=== PATIENT | female | born 1995 | race Caucasian/White ===

== ENCOUNTER 2016-10-07 23:07 | Emergency (ER) | payer OTHER ==
[~2016-10-07] VITALS: Ht 160 cm; Wt 52.2 kg
[~2016-10-07 23:07] MED LIST: CLOTRIMAZOLE15 GM TOP; DOXYCYCLINE HY100 M2 PO; MOTRIN 600 MG600 MG PO; ZOFRAN4 M1 SL
[2016-10-08 01:35] LABS: ABSOLUTE BASOPHIL COUNT 0.1 /CUMM (0.0-0.2); ABSOLUTE EOSINOPHIL COUNT 0 /CUMM (0.0-0.7); ABSOLUTE GRANULOCYTE CT 11.5 /CUMM (1.4-6.5); ABSOLUTE LYMPH COUNT 2.1 /CUMM (1.2-3.4); ABSOLUTE MONOCYTE COUNT 0.9 /CUMM (0.10-0.60); BASOPHIL % 0.7 % (0.0-2.0); EOSINOPHIL % 0.1 % (0-5); GRANULOCYTE % 78.9 % (42.2-75.2); HEMATOCRIT 41.6 % (37-47); MEAN CORPUSCULAR HGB 28.2 PG (27.0-31.0); MEAN CORPUSCULAR HGB CONC 33.9 G/DL (33.0-37.0); MEAN CORPUSCULAR VOLUME 83.4 FL (81.0-99.0); MEAN PLATELET VOLUME 9.8 FL (7.4-10.4); PLATELET COUNT 242 /CUMM (130-400); RBC DISTRIBUTION WIDTH 13.3 % (11.5-14.5); RED BLOOD CELL CT 4.99 /CUMM (4.20-5.40); WHITE BLOOD CELL COUNT 14.5 /CUMM (4.8-10.8)
--- NOTE | 2016-10-08 01:47 | ED GI/GU/ABDOMINAL COMPLAINT ---
History of Present Illness General Chief Complaint: Abdominal Pain/Flank Pain Stated Complaint: ABD PAIN,VOMTING Source: patient, family Exam Limitations: no limitations Vital Signs & Intake/Output Vital Signs & Intake/Output Vital Signs Date Time Temp Pulse Resp B/P B/P Pulse O2 O2 Flow FiO2 Mean Ox Delivery Rate 10/08 0744 100.2 65 18 103/54 97 Room Air 10/08 0511 99.8 10/08 0301 98.9 87 18 113/61 97 Room Air 10/08 0219 Room Air 10/07 2326 100.4 90 18 104/54 96 Room Air ED Intake and Output 10/08 0000 10/07 1200 Intake Total Output Total Balance Patient 115 lb Weight Weight Reported by Patient Measurement Method Allergies Coded Allergies: NO KNOWN ALLERGIES (11/13/12) Triage Note: ABD CRAMPS ALL DAY ADVIL WITH NO RELIEF BACK PAIN,SHARP PAINS IN CHEST,VOMITED X1 Triage Nurses Notes Reviewed? yes ? N Is pt currently ? No HPI: Patient presents for evaluation of a cramping abdominal pain that began gradually yesterday. Patient states she then began having a sharp chest pain. She also felt like she was going to vomit. In addition to the abdominal pain she is also experiencing a bilateral low back pain. She denies diarrhea, dysuria, rashes, dyspnea, ill contacts or recent travel. Nothing seems to make her feel better. (MAVERICK JACQUES,VIKKI Lester) Past History Travel History Traveled to [place] past 21 day No Medical History Any Pertinent Medical History? 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 No (VIKKI TEMPLE MD) Review of Systems Review of Systems Constitutional: Reports: no symptoms. EENTM: Reports: no symptoms. Respiratory: Reports: no symptoms. Cardiovascular: Reports: no symptoms. GI: Reports: see HPI. Genitourinary: Reports: no symptoms. Musculoskeletal: Reports: no symptoms. Skin: Reports: no symptoms. Neurological/Psychological: Reports: no symptoms. Hematologic/Endocrine: Reports: no symptoms. Immunologic/Allergic: Reports: no symptoms. All Other Systems: Reviewed and Negative (MAVERICK JACQUES,VIKKI Lester) Physical Exam Physical Exam Gastrointestinal: SEE BELOW Comments: Gen.: Well-nourished, well-developed, no acute respiratory distress. Head: Normocephalic, atraumatic. Eyes: Normal inspection bilaterally Ears: Normal inspection bilaterally Nose: Normal inspection Throat/mouth : Moist mucosa Neck: Supple, full range of motion, no goiter Heart: Regular rate and rhythm, no murmurs rubs or gallops Lungs: Clear to auscultation bilaterally with normal air entry Chest: Nontender Back: Normal range of motion, nontender to palpation, mild right CVA T to percussion Abdomen: Soft, diffusely tender without rebound or guarding, nondistended, normal bowel sounds, no palpable masses Extremities: Normal range of motion grossly, equal radial pulses, no cyanosis clubbing or edema, calves nontender Neurologic: Cranial nerves grossly intact, speech is clear Skin: warm and dry Psychiatric: Calm, cooperative, no apparent delusions or hallucinations Core Measures ACS in differential dx? No Severe Sepsis Present: No Septic Shock Present: No (MAVERICK JACQUES,VIKKI Lester) Progress Differential Diagnosis: GASTROENTERITIS, SIDE EFFECT OF MARIJUANA, GASTRITIS Plan of Care: Orders Procedure Date/time Status Add-on Test (ER Only) 10/08 0558 Active CBC WITHOUT DIFFERENTIAL 10/08 0558 Complete BASIC METABOLIC PANEL 10/08 0558 Complete URINALYSIS 10/08 0425 Complete URINE DRUGS OF ABUSE 10/08 0408 Complete Add-on Test (ER Only) 10/08 0159 Active CREATINE PHOSPHOKINASE 10/08 0125 Complete COMPREHENSIVE METABOLIC PANEL 10/08 0122 Complete CBC WITHOUT DIFFERENTIAL 10/08 0122 Complete URINE 10/08 0026 Complete URINALYSIS 10/08 0026 Complete Current Medications Sig/Panchito Start time Last Medication Dose Stop Time Status Admin Sodium Chloride 1,000 ML BOLUS ONE 10/08 0800 AC 10/08 (Normal Saline 0.9%) 10/08 0859 0758 Sodium Chloride 1,000 ML BOLUS ONE 10/08 0215 CAN (Normal Saline 0.9%) 10/08 0314 Laboratory Tests 10/08/16 0617: Anion Gap 8, Estimated GFR > 60, BUN/Creatinine Ratio 8.3, Glucose 81, Calcium 8.5, CBC w Diff NO MAN DIFF REQ, RBC 4.87, MCV 84.5, MCH 28.3, RDW 13.5, MPV 9.8 , Gran % 76.4 H, Lymphocytes % 16.3 L, Monocytes % 6.8, Eosinophils % 0.1, Basophils % 0.4, Absolute Granulocytes 6.9 H, Absolute Lymphocytes 1.5, Absolute Monocytes 0.6, Absolute Eosinophils 0, Absolute Basophils 0, PUBS MCHC 33.4 10/08/16 0408: Urine Opiates Screen < 100.00, Methadone Screen < 40, Barbiturate Screen < 60, Ur Phencyclidine Scrn < 6.00, Amphetamines Screen < 100, U Benzodiazepines Scrn < 85, Urine Cocaine Screen < 50, Urine Cannabis Screen > 80.00 H, Urinalysis LIGHT H, Urine Color STRAW, Urine Clarity HAZY H, Urine pH 6.5, Ur Specific Deport <= 1.005, Urine Protein NEG, Urine Ketones 40 H, Urine Nitrite POS H, Urine Bilirubin NEG, Urine Urobilinogen 0.2, Ur Leukocyte Esterase SMALL H, Ur Microscopic SEDIMENT EXAMINED, Urine RBC 3-5, Urine WBC 10-15 H, Ur Epithelial Cells FEW, Urine Bacteria MOD H, Urine Hemoglobin TRACE-INTACT, Urine Glucose 500 H 10/08/16 0311: Urine Color Cancelled, Urine Clarity Cancelled, Urine pH Cancelled, Ur Specific Deport Cancelled, Urine Protein Cancelled, Urine Ketones Cancelled, Urine Nitrite Cancelled, Urine Bilirubin Cancelled, Urine Urobilinogen Cancelled, Ur Leukocyte Esterase Cancelled, Ur Microscopic Cancelled, Urine Hemoglobin Cancelled, Urine Glucose Cancelled 10/08/16 0125: Anion Gap 15, Estimated GFR > 60, BUN/Creatinine Ratio 11.4, Glucose 86, Calcium 9.7, Total Bilirubin 1.0, AST 18, ALT 23, Alkaline Phosphatase 82, Creatine Kinase 145 H, Total Protein 7.5, Albumin 4.7, Globulin 2.8, Albumin/Globulin Ratio 1.7, CBC w Diff NO MAN DIFF REQ, RBC 4.99, MCV 83.4, MCH 28.2, RDW 13.3, MPV 9.8, Gran % 78.9 H, Lymphocytes % 14.1 L, Monocytes % 6.2, Eosinophils % 0.1, Basophils % 0.7, Absolute Granulocytes 11.5 H, Absolute Lymphocytes 2.1, Absolute Monocytes 0.9 H, Absolute Eosinophils 0, Absolute Basophils 0.1, PUBS MCHC 33.9 10/08/16 0030: Urine Color YEL, Urine Clarity CLDY H, Urine pH 6.5, Ur Specific Deport 1.020, Urine Protein 100 H, Urine Ketones >=80, Urine Nitrite POS H, Urine Bilirubin NEG, Urine Urobilinogen 1.0, Ur Leukocyte Esterase SMALL H, Ur Microscopic SEDIMENT EXAMINED, Urine RBC 3-5, Urine WBC 15-25 H, Ur Epithelial Cells PACKD H, Urine Bacteria MANY H, Urine Mucus FEW, Urine Hemoglobin MOD H, Urine Glucose NEG, Urine Test NEGATIVE Initial ED EKG: none Comments: 10/08/2016 5:08:31 AM I updated Barrington on her test results after initial testing. I did discuss with her the findings of the urinalysis. They agreed with additional fluids and a repeat urine. Repeat urinalysis shows improvement in the level of ketones and her urine is now quite dilute. Unfortunately she vomited again so additional Zofran has been ordered. 10/08/2016 5:58:57 AM Barrington continues to vomit despite a second dose of Zofran. I have ordered Phenergan for symptom control and expanded evaluation to include a CAT scan and repeat CBCs and BMP. I have also added a drug tox screen. 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 (MAVERICK JACQUES,VIKKI Lester) Diagnostic Imaging: Viewed by Me: CT Scan. Discussed w/RAD: CT Scan. Radiology Impression: PATIENT: MARTIN BRITT PRESENT AGE: 21 PATIENT ACCOUNT NO: [id number] : 95 LOCATION: [facility] ORDERING PHYSICIAN: VIKKI TEMPLE MD SERVICE DATE: 10/08/16 EXAM TYPE: CAT - CT ABD & PELVIS W IV CONTRAST EXAMINATION: CT ABDOMEN AND PELVIS WITH CONTRAST CLINICAL INFORMATION: Intractable vomiting COMPARISON: None TECHNIQUE: Multidetector volumetric imaging was performed of the abdomen and pelvis before and after the IV administration of 95 mL of Optiray 320 intravenous contrast. Sagittal and coronal reformatted images were obtained on the technologist's workstation. DLP: 255.37 mGy-cm FINDINGS: LUNG BASES: The visualized lung bases are unremarkable. LIVER, GALLBLADDER, AND BILIARY TREE: The liver is mildly enlarged. Evaluation of the liver is slightly limited due to the timing of the contrast bolus; the hepatic veins are not yet opacified. There is patchy attenuation of the right lobe of the liver with a subtle 1 cm hypoattenuating region in the inferior right lobe (image 34, series 2). No well-defined mass. No intrahepatic biliary ductal dilatation. Mild periportal edema is seen. No evidence of portal vein thrombosis. The gallbladder demonstrates mild gallbladder wall edema without visualized calculus. There is a small volume of free fluid adjacent to the gallbladder and in the hepatorenal fossa. PANCREAS: Unremarkable. SPLEEN: Unremarkable. ADRENAL GLANDS: Unremarkable. KIDNEYS AND URETERS: Both kidneys are normal in size without calculus or hydronephrosis. A slightly ill-defined rounded hypodensity seen in the anterior cortex of the right lower pole measuring 8 mm in maximum size. This does not have the characteristics of a simple renal cyst. No additional findings. BLADDER: Unremarkable. GASTROINTESTINAL TRACT: No evidence of bowel obstruction. The study is limited by the lack of oral contrast. No obvious gastric wall thickening. No significant small bowel dilatation. The cecum and appendix are located in the right mid to lower abdomen. No evidence of appendicitis. No evidence of pneumoperitoneum. ABDOMINAL WALL: No significant hernia is appreciated. LYMPH NODES: Normal. VASCULAR: Abdominal aorta is normal in appearance. There is normal orientation of the superior mesenteric artery and superior mesenteric vein. 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 A small amount of free fluid is seen in the pelvis. No evidence of adnexal mass. OSSEOUS STRUCTURES: Unremarkable. IMPRESSION: 1. Mild hepatomegaly. Asymmetric enhancement of the liver with patchy attenuation in the right lobe and a subtle hypoattenuating region inferiorly. These findings may be exaggerated by the phase of contrast enhancement. There is associated periportal edema and edema in the gallbladder wall with a small amount of fluid in the hepatorenal fossa. Correlate with liver enzymes to assess for hepatitis or other inflammatory process. Recommend abdominal ultrasound with complete liver Doppler. 2. No evidence of splenomegaly or portal hypertension. 3. Subtle hypoattenuating region in the lower pole of the right kidney may reflect a complex cyst. A subtle focus of pyelonephritis is not excluded. Recommend correlation with renal sonography. 4. The cecum and appendix are located in the right mid to lower abdomen. No evidence of appendicitis. No evidence of bowel obstruction. DICTATED BY: DMITRY JACKSON MD DATE/TIME DICTATED:10/08/16718 QUALITY CONTROL LAB TECH:DAVID DATE/TIME TRANSCRIBED:10/08/16718 CONFIDENTIAL, DO NOT COPY WITHOUT APPROPRIATE AUTHORIZATION. <Electronically signed in Other Vendor System> SIGNED BY: DMITRY JACKSON MD 10/08/16 0375 Comments: Patient and her mother have been updated on labs and CAT scan results. Patient is feeling slightly better after the Reglan and Levsin. We'll continue to monitor. As long as she is feeling better she'll be stable for discharge. (ALEXYS JACQUES,LEONEL Castellano) Departure Departure Condition: Stable Referrals: AYLA JACQUES,SALUD Bergman (PCP/Family) Departure Forms: Customer Survey General Discharge Information (MAVERICK JACQUES,VIKIK Lester) Departure Disposition: HOME OR SELF CARE Clinical Impression Primary Impression: Lower abdominal pain, unspecified Secondary Impressions: Vomiting Qualifiers: Vomiting type: unspecified Vomiting Intractability: non-intractable Nausea presence: with nausea Qualified Code: R11.2 - Nausea with vomiting, unspecified Additional Instructions: Take Reglan as needed for nausea. Take Levsin as needed for abdominal cramps. Return for any concerns. Prescriptions: Current Visit Scripts Metoclopramide HCl (Reglan) 1 TAB PO 4 TIMES/DAY PRN NAUSEA #20 TAB 30 minutes before meals and bedtime Hyoscyamine (Levsin) 1 TAB PO Q4 PRN ABDOMINAL PAIN #20 TAB (ALEXYS JACQUES,LEONEL Castellano)
[2016-10-08 06:28] LABS: ABSOLUTE BASOPHIL COUNT 0 /CUMM (0.0-0.2); ABSOLUTE EOSINOPHIL COUNT 0 /CUMM (0.0-0.7); ABSOLUTE GRANULOCYTE CT 6.9 /CUMM (1.4-6.5); ABSOLUTE LYMPH COUNT 1.5 /CUMM (1.2-3.4); ABSOLUTE MONOCYTE COUNT 0.6 /CUMM (0.10-0.60); BASOPHIL % 0.4 % (0.0-2.0); EOSINOPHIL % 0.1 % (0-5); GRANULOCYTE % 76.4 % (42.2-75.2); HEMATOCRIT 41.2 % (37-47); MEAN CORPUSCULAR HGB 28.3 PG (27.0-31.0); MEAN CORPUSCULAR HGB CONC 33.4 G/DL (33.0-37.0); MEAN CORPUSCULAR VOLUME 84.5 FL (81.0-99.0); MEAN PLATELET VOLUME 9.8 FL (7.4-10.4); PLATELET COUNT 178 /CUMM (130-400); RBC DISTRIBUTION WIDTH 13.5 % (11.5-14.5); RED BLOOD CELL CT 4.87 /CUMM (4.20-5.40); WHITE BLOOD CELL COUNT 9.1 /CUMM (4.8-10.8)
--- NOTE | 2016-10-08 07:40 | CT SCAN REPORT ---
EXAMINATION: CT ABDOMEN AND PELVIS WITH CONTRAST CLINICAL INFORMATION: Intractable vomiting COMPARISON: None TECHNIQUE: Multidetector volumetric imaging was performed of the abdomen and pelvis before and after the IV administration of 95 mL of Optiray 320 intravenous contrast. Sagittal and coronal reformatted images were obtained on the technologist's workstation. DLP: 255.37 mGy-cm FINDINGS: LUNG BASES: The visualized lung bases are unremarkable. LIVER, GALLBLADDER, AND BILIARY TREE: The liver is mildly enlarged. Evaluation of the liver is slightly limited due to the timing of the contrast bolus; the hepatic veins are not yet opacified. There is patchy attenuation of the right lobe of the liver with a subtle 1 cm hypoattenuating region in the inferior right lobe (image 34, series 2). No well-defined mass. No intrahepatic biliary ductal dilatation. Mild periportal edema is seen. No evidence of portal vein thrombosis. The gallbladder demonstrates mild gallbladder wall edema without visualized calculus. There is a small volume of free fluid adjacent to the gallbladder and in the hepatorenal fossa. PANCREAS: Unremarkable. SPLEEN: Unremarkable. ADRENAL GLANDS: Unremarkable. KIDNEYS AND URETERS: Both kidneys are normal in size without calculus or hydronephrosis. A slightly ill-defined rounded hypodensity seen in the anterior cortex of the right lower pole measuring 8 mm in maximum size. This does not have the characteristics of a simple renal cyst. No additional findings. BLADDER: Unremarkable. GASTROINTESTINAL TRACT: No evidence of bowel obstruction. The study is limited by the lack of oral contrast. No obvious gastric wall thickening. No significant small bowel dilatation. The cecum and appendix are located in the right mid to lower abdomen. No evidence of appendicitis. No evidence of pneumoperitoneum. ABDOMINAL WALL: No significant hernia is appreciated. LYMPH NODES: Normal. VASCULAR: Abdominal aorta is normal in appearance. There is normal orientation of the superior mesenteric artery and superior mesenteric vein. 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 A small amount of free fluid is seen in the pelvis. No evidence of adnexal mass. OSSEOUS STRUCTURES: Unremarkable. IMPRESSION: 1. Mild hepatomegaly. Asymmetric enhancement of the liver with patchy attenuation in the right lobe and a subtle hypoattenuating region inferiorly. These findings may be exaggerated by the phase of contrast enhancement. There is associated periportal edema and edema in the gallbladder wall with a small amount of fluid in the hepatorenal fossa. Correlate with liver enzymes to assess for hepatitis or other inflammatory process. Recommend abdominal ultrasound with complete liver Doppler. 2. No evidence of splenomegaly or portal hypertension. 3. Subtle hypoattenuating region in the lower pole of the right kidney may reflect a complex cyst. A subtle focus of pyelonephritis is not excluded. Recommend correlation with renal sonography. 4. The cecum and appendix are located in the right mid to lower abdomen. No evidence of appendicitis. No evidence of bowel obstruction.
[2016-10-08] MEDS ORDERED: REGLAN10 M1 PO (08:30)
[2016-10-08] MEDS ORDERED: LEVSIN0.125 M1 PO (08:30)
[2016-10-08 09:21] VITALS: BP 93/50
== END 2016-10-08 09:59 ==
LOC: ERH 23:07
PROVIDERS: Emergency Medicine
DX: R10.9 Unspecified abdominal pain (principal); R07.9 Chest pain, unspecified
CPT/HCPCS: 74177; 80307; 81001; 81025; 96374; J2405; J2550; J2765; J7042

== ENCOUNTER 2016-10-11 21:25 | Emergency (ER) | payer OTHER ==
[~2016-10-11] VITALS: Ht 157.5 cm; Wt 52.2 kg
[~2016-10-11 21:25] MED LIST changes: +LEVSIN0.125 M1 PO; +REGLAN10 M1 PO
--- NOTE | 2016-10-11 23:05 | ED GENERAL ADULT ---
History of Present Illness General Chief Complaint: General Adult Stated Complaint: 102 FEVER, VOMITING, HERE 2DAYS AGO FOR SAME Source: patient Exam Limitations: no limitations Vital Signs & Intake/Output Vital Signs & Intake/Output Vital Signs Date Time Temp Pulse Resp B/P B/P Pulse O2 O2 Flow FiO2 Mean Ox Delivery Rate 10/12 0249 99.7 81 18 112/62 98 Room Air 10/11 2344 80 20 110/56 98 Room Air 10/11 2152 100.4 80 20 111/74 97 Room Air ED Intake and Output 10/12 0000 10/11 1200 Intake Total Output Total Balance Patient 115 lb Weight Weight Reported by Patient Measurement Method Allergies Coded Allergies: NO KNOWN ALLERGIES (11/13/12) Reconcile Medications Ciprofloxacin HCl (Cipro) 500 MG TABLET 1 TAB PO BID urine infection/pyelo Hyoscyamine (Levsin) 0.125 MG TABLET 1 TAB PO Q4 PRN ABDOMINAL PAIN Metoclopramide HCl (Reglan) 10 MG TABLET 1 TAB PO 4 TIMES/DAY PRN NAUSEA 30 minutes before meals and bedtime Ondansetron (Zofran Odt) 4 MG TAB.RAPDIS 1 TAB SL TID PRN NAUSEA Triage Note: PT TO ED C/O CONTINUED +N/V, FEVER, LOW ABD CRAMPING PAIN AND SHARP LOW BACK PAIN. SEEN HERE FOR SAME 2 DAYS AGO. TEMP AT HOME 102. TEMP IN TRIAGE 100.4 TA. WAS GIVEN ADVIL LIQUID GELS AT 1900, VOMITTED 20 MINS LATER. STATES HAS HAD ONLY ONE MENSES IN HER LIFE AND THAT WAS WHEN SHE WAS 19 YRS OLD. Triage Nurses Notes Reviewed? yes Onset: Gradual Duration: day(s): Timing: recent history Injury Environment: home Modifying Factors: Improves With: medication. Associated Symptoms: back pain : No Patient currently breastfeeds: No HPI: 21-year-old female presents with nausea vomiting flank pain for the past 2-3 days. She states that she was seen in the emergency department 2 days ago. She had a benign evaluation was sent home with supportive measures. However, did pass a hours she spiked a fever to 102. She notes worsening flank pain bilaterally and lower abdominal pain. She started vomiting again. She has no chest pain shortness of breath for and she is otherwise well and has no other concerns. Past History Travel History Traveled to [place] past 21 day No Medical History Any Pertinent Medical History? see below for history Neurological: NONE EENT: NONE Cardiovascular: NONE Respiratory: NONE Gastrointestinal: NONE Hepatic: NONE Renal: NONE Musculoskeletal: NONE Psychiatric: NONE Endocrine: NONE Blood Disorders: NONE Cancer(s): NONE [employer]/Reproductive: NONE Surgical History Surgical History: non-contributory Psychosocial History What is your primary language Latvian Tobacco Use: Current Daily Use Daily Tobacco Use Amount/Type: => 5 Cigarettes daily ETOH Use: denies use Illicit Drug Use: marijuana Family History Hx Contributory? No Review of Systems Review of Systems Constitutional: Reports: no symptoms. EENTM: Reports: no symptoms. Respiratory: Reports: no symptoms. Cardiovascular: Reports: no symptoms. GI: Reports: no symptoms. Genitourinary: Reports: no symptoms. Musculoskeletal: Reports: no symptoms. Skin: Reports: no symptoms. Neurological/Psychological: Reports: no symptoms. Hematologic/Endocrine: Reports: no symptoms. Immunologic/Allergic: Reports: no symptoms. All Other Systems: Reviewed and Negative Physical Exam Physical Exam General Appearance: well developed/nourished, mild distress Head: atraumatic, normal appearance Eyes: Bilateral: normal appearance. Ears, Nose, Throat: normal pharynx, normal ENT inspection Neck: normal inspection, supple, full range of motion Respiratory: normal breath sounds, chest non-tender, no respiratory distress, quiet respiration, lungs clear Cardiovascular: regular rate/rhythm, edema Gastrointestinal: normal bowel sounds, soft, right lower quadrant tenderness to palpation. Back: CVA tenderness (R), CVA tenderness (L) Extremities: normal inspection Neurologic/Psych: no motor/sensory deficits, awake, alert, oriented x 3 Skin: intact, normal color, warm/dry Core Measures ACS in differential dx? No CVA/TIA Diagnosis: No Severe Sepsis Present: No Septic Shock Present: No Progress Differential Diagnoses I considered the following diagnoses in my evaluation of the patient: Juan Fracnisco versus appendectomy versus ovarian cyst versus cholecystitis versus other Plan of Care: Orders Procedure Date/time Status Add-on Test (ER Only) 10/12 0122 Active CULTURE,URINE 10/11 2343 Active URINALYSIS 10/11 231 Complete LIPASE 10/11 231 Complete HEPATIC FUNCTION PANEL 10/11 2314 Complete CBC WITHOUT DIFFERENTIAL 10/11 2314 Complete BASIC METABOLIC PANEL 10/11 2314 Complete AMYLASE 10/11 231 Complete Laboratory Tests 10/11/16 2343: Urinalysis MOD H, Urine Color YEL, Urine Clarity CLDY H, Urine pH 7.0, Ur Specific [place] 1.020, Urine Protein 30 H, Urine Ketones >=80, Urine Nitrite POS H, Urine Bilirubin SMALL H, Urine Urobilinogen 1.0, Ur Leukocyte Esterase SMALL H, Ur Microscopic SEDIMENT EXAMINED, Urine RBC 1-3, Urine WBC 15-25 H, Ur Epithelial Cells MOD H, Urine Bacteria PACKD H, Hyaline Casts RARE H, Urine Mucus MANY H, Urine Hemoglobin TRACE-INTACT, Urine Glucose NEG 10/11/16 2323: Anion Gap 16, Estimated GFR > 60, BUN/Creatinine Ratio 11.7, Glucose 89, Calcium 9.6, Total Bilirubin 0.8, Direct Bilirubin 0.3, AST 16, ALT 22, Alkaline Phosphatase 76, Total Protein 7.1, Albumin 4.4, Amylase 66, Lipase 59, CBC w Diff MAN DIFF ORDERED, RBC 4.64, MCV 83.9, MCH 28.0, RDW 13.3, MPV 9.4, Gran % 85.3 H, Lymphocytes % 9.4 L, Monocytes % 5.0, Eosinophils % 0, Basophils % 0.3 , Absolute Granulocytes 9.3 H, Segmented Neutrophils 83 H, Band Neutrophils 2, Absolute Lymphocytes 1.0 L, Lymphocytes 12 L, Monocytes 3, Absolute Monocytes 0.5, Absolute Eosinophils 0, Absolute Basophils 0, Platelet Estimate ADEQUATE, Normochromic RBCs VERIFIED, Poikilocytosis 2+, Ovalocytes 1+, Melbeta Cells 1+, Elliptocytes FEW, PUBS MCHC 33.3, Fld Total RBCs Counted 100 Microbiology 10/113 URINE ROUT: Urine Culture - RECD Diagnostic Imaging: Viewed by Me: CT Scan. Discussed w/RAD: CT Scan. Radiology Impression: ABD/PELVIC CT... FLUID AROUND GALL BLADDER... NORMAL APPY... FULL REPORT BELOW. , abd/pelvic ct.... c/w pyelo.. full report below. Initial ED EKG: none Comments: PATIENT: MARTIN BRITT PRESENT AGE: 21 PATIENT ACCOUNT NO: [id number] : 95 LOCATION: ER ORDERING PHYSICIAN: ARIANNA OROZCO MD SERVICE DATE: 10/11/16 EXAM TYPE: CAT - CT ABD & PELVIS W IV CONTRAST EXAMINATION: CT ABDOMEN AND PELVIS WITH CONTRAST CLINICAL INFORMATION: Abdominal pain. Right lower quadrant pain. Right upper quadrant pain. COMPARISON: CT scan abdomen pelvis TECHNIQUE: Multidetector volumetric imaging was performed of the abdomen and pelvis after the IV administration of 94 mL of Optiray 320 intravenous contrast. Sagittal and coronal reformatted images were obtained on the technologist's workstation. DLP: 247.39 mGy-cm FINDINGS: LUNG BASES: The visualized lung bases are unremarkable. LIVER, GALLBLADDER, AND BILIARY TREE: The liver is normal in size, shape, and attenuation. No focal hepatic lesion or biliary ductal dilatation is present. Normal enhancement of the parenchyma of liver. The patchy area of enhancement seen on the prior CAT scan of 10/08/2016 not present on today's study. Right lobe liver measures 16.7 cm superior inferior. The gallbladder is unremarkable with no evidence of radiopaque gallstones, gallbladder wall thickening, or obvious pericholecystic inflammatory changes. PANCREAS: Unremarkable. SPLEEN: Unremarkable. Spleen measures 10 cm AP. ADRENAL GLANDS: Unremarkable. KIDNEYS AND URETERS: There is a new geographic area of low enhancement involving the anterior midpole cortex of the right kidney. This measures about 2 cm of size. There are also multiple streaky area of low enhancement at the right kidney inferior pole. There is a subtle amount of edema around the right kidney. Findings suggest a focal pyelonephritis. The left kidney is normal. No calculus or hydronephrosis. BLADDER: Unremarkable. GASTROINTESTINAL TRACT: The small and large bowel are unremarkable. The appendix is is normal. ABDOMINAL WALL: No significant hernia is appreciated. LYMPH NODES: Normal. VASCULAR: Unremarkable. PELVIC VISCERA: Bicornuate configuration of the uterus. No adnexal abnormality. Small amount of fluid in the cul-de-sac which is nonspecific. OSSEOUS STRUCTURES: Unremarkable. IMPRESSION: 1. Interval development of patchy enhancement of the cortex of the mid and lower pole of the right kidney consistent with focal pyelonephritis. Correlate with urinalysis. 2. Normal enhancement of liver parenchyma on today's study with no focal lesion. 3. Normal variant of bicornuate uterus. 4. Normal appendix. No acute change of the bowel. DICTATED BY: BHUPINDER DUNN MD DATE/TIME DICTATED:10/12/1635 CLINICAL RESEARCH ANALYST:DAVID DATE/TIME TRANSCRIBED:10/12/1635 CONFIDENTIAL, DO NOT COPY WITHOUT APPROPRIATE AUTHORIZATION. <Electronically signed in Other Vendor System> SIGNED BY: BHUPINDER DUNN MD 10/12/16 0048 PATIENT: MARTIN BRITT PRESENT AGE: 21 PATIENT ACCOUNT NO: [id number] : 95 LOCATION: [facility] ORDERING PHYSICIAN: VIKKI TEMPLE MD SERVICE DATE: 10/08/16 EXAM TYPE: CAT - CT ABD & PELVIS W IV CONTRAST EXAMINATION: CT ABDOMEN AND PELVIS WITH CONTRAST CLINICAL INFORMATION: Intractable vomiting COMPARISON: None TECHNIQUE: Multidetector volumetric imaging was performed of the abdomen and pelvis before and after the IV administration of 95 mL of Optiray 320 intravenous contrast. Sagittal and coronal reformatted images were obtained on the technologist's workstation. DLP: 255.37 mGy-cm FINDINGS: LUNG BASES: The visualized lung bases are unremarkable. LIVER, GALLBLADDER, AND BILIARY TREE: The liver is mildly enlarged. Evaluation of the liver is slightly limited due to the timing of the contrast bolus; the hepatic veins are not yet opacified. There is patchy attenuation of the right lobe of the liver with a subtle 1 cm hypoattenuating region in the inferior right lobe (image 34, series 2). No well-defined mass. No intrahepatic biliary ductal dilatation. Mild periportal edema is seen. No evidence of portal vein thrombosis. The gallbladder demonstrates mild gallbladder wall edema without visualized calculus. There is a small volume of free fluid adjacent to the gallbladder and in the hepatorenal fossa. PANCREAS: Unremarkable. SPLEEN: Unremarkable. ADRENAL GLANDS: Unremarkable. KIDNEYS AND URETERS: Both kidneys are normal in size without calculus or hydronephrosis. A slightly ill-defined rounded hypodensity seen in the anterior cortex of the right lower pole measuring 8 mm in maximum size. This does not have the characteristics of a simple renal cyst. No additional findings. BLADDER: Unremarkable. GASTROINTESTINAL TRACT: No evidence of bowel obstruction. The study is limited by the lack of oral contrast. No obvious gastric wall thickening. No significant small bowel dilatation. The cecum and appendix are located in the right mid to lower abdomen. No evidence of appendicitis. No evidence of pneumoperitoneum. ABDOMINAL WALL: No significant hernia is appreciated. LYMPH NODES: Normal. VASCULAR: Abdominal aorta is normal in appearance. There is normal orientation of the superior mesenteric artery and superior mesenteric vein. 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 A small amount of free fluid is seen in the pelvis. No evidence of adnexal mass. OSSEOUS STRUCTURES: Unremarkable. IMPRESSION: 1. Mild hepatomegaly. Asymmetric enhancement of the liver with patchy attenuation in the right lobe and a subtle hypoattenuating region inferiorly. These findings may be exaggerated by the phase of contrast enhancement. There is associated periportal edema and edema in the gallbladder wall with a small amount of fluid in the hepatorenal fossa. Correlate with liver enzymes to assess for hepatitis or other inflammatory process. Recommend abdominal ultrasound with complete liver Doppler. 2. No evidence of splenomegaly or portal hypertension. 3. Subtle hypoattenuating region in the lower pole of the right kidney may reflect a complex cyst. A subtle focus of pyelonephritis is not excluded. Recommend correlation with renal sonography. 4. The cecum and appendix are located in the right mid to lower abdomen. No evidence of appendicitis. No evidence of bowel obstruction. DICTATED BY: DMITRY JACKSON MD DATE/TIME DICTATED:10/08/16718 CLINICAL RESEARCH ANALYST:DAVID DATE/TIME TRANSCRIBED:10/08/16718 CONFIDENTIAL, DO NOT COPY WITHOUT APPROPRIATE AUTHORIZATION. <Electronically signed in Other Vendor System> SIGNED BY: DMITRY JACKSON MD 10/08/16 0740 Departure Departure Disposition: HOME OR SELF CARE Condition: Stable Clinical Impression Primary Impression: Pyelonephritis Referrals: AYLA JACQUES,SALUD Bergman (PCP/Family) Departure Forms: Customer Survey General Discharge Information Prescriptions: Current Visit Scripts Ciprofloxacin HCl (Cipro) 1 TAB PO BID #20 TAB Ondansetron (Zofran Odt) 1 TAB SL TID PRN NAUSEA #10 TAB Comments 10/12/16, 1:29AM... Patient feeling well. CT scan and urinalysis suggest pyelonephritis. Patient given ceftriaxone 1 g IV 1. I gave her prescription of Cipro. She will complete a prolonged course. Encourage close follow up with me if not feeling better within the next 24-48 hours. Critical Care Note Critical Care Note Critical Care Time: non-applicable
[2016-10-11 23:41] LABS: ABSOLUTE BASOPHIL COUNT 0 /CUMM (0.0-0.2); ABSOLUTE EOSINOPHIL COUNT 0 /CUMM (0.0-0.7); ABSOLUTE GRANULOCYTE CT 9.3 /CUMM (1.4-6.5); ABSOLUTE MONOCYTE COUNT 0.5 /CUMM (0.10-0.60); BASOPHIL % 0.3 % (0.0-2.0); EOSINOPHIL % 0 % (0-5); GRANULOCYTE % 85.3 % (42.2-75.2); HEMATOCRIT 38.9 % (37-47); MEAN CORPUSCULAR HGB CONC 33.3 G/DL (33.0-37.0); MEAN CORPUSCULAR VOLUME 83.9 FL (81.0-99.0); MEAN PLATELET VOLUME 9.4 FL (7.4-10.4); PLATELET COUNT 218 /CUMM (130-400); RBC DISTRIBUTION WIDTH 13.3 % (11.5-14.5); RED BLOOD CELL CT 4.64 /CUMM (4.20-5.40); WHITE BLOOD CELL COUNT 10.9 /CUMM (4.8-10.8)
--- NOTE | 2016-10-12 00:48 | CT SCAN REPORT ---
EXAMINATION: CT ABDOMEN AND PELVIS WITH CONTRAST CLINICAL INFORMATION: Abdominal pain. Right lower quadrant pain. Right upper quadrant pain. COMPARISON: CT scan abdomen pelvis TECHNIQUE: Multidetector volumetric imaging was performed of the abdomen and pelvis after the IV administration of 94 mL of Optiray 320 intravenous contrast. Sagittal and coronal reformatted images were obtained on the technologist's workstation. DLP: 247.39 mGy-cm FINDINGS: LUNG BASES: The visualized lung bases are unremarkable. LIVER, GALLBLADDER, AND BILIARY TREE: The liver is normal in size, shape, and attenuation. No focal hepatic lesion or biliary ductal dilatation is present. Normal enhancement of the parenchyma of liver. The patchy area of enhancement seen on the prior CAT scan of 10/08/2016 not present on today's study. Right lobe liver measures 16.7 cm superior inferior. The gallbladder is unremarkable with no evidence of radiopaque gallstones, gallbladder wall thickening, or obvious pericholecystic inflammatory changes. PANCREAS: Unremarkable. SPLEEN: Unremarkable. Spleen measures 10 cm AP. ADRENAL GLANDS: Unremarkable. KIDNEYS AND URETERS: There is a new geographic area of low enhancement involving the anterior midpole cortex of the right kidney. This measures about 2 cm of size. There are also multiple streaky area of low enhancement at the right kidney inferior pole. There is a subtle amount of edema around the right kidney. Findings suggest a focal pyelonephritis. The left kidney is normal. No calculus or hydronephrosis. BLADDER: Unremarkable. GASTROINTESTINAL TRACT: The small and large bowel are unremarkable. The appendix is is normal. ABDOMINAL WALL: No significant hernia is appreciated. LYMPH NODES: Normal. VASCULAR: Unremarkable. PELVIC VISCERA: Bicornuate configuration of the uterus. No adnexal abnormality. Small amount of fluid in the cul-de-sac which is nonspecific. OSSEOUS STRUCTURES: Unremarkable. IMPRESSION: 1. Interval development of patchy enhancement of the cortex of the mid and lower pole of the right kidney consistent with focal pyelonephritis. Correlate with urinalysis. 2. Normal enhancement of liver parenchyma on today's study with no focal lesion. 3. Normal variant of bicornuate uterus. 4. Normal appendix. No acute change of the bowel.
[2016-10-12] MEDS ORDERED: CIPRO500 M1 PO (01:23)
[2016-10-12] MEDS ORDERED: ZOFRAN ODT4 M1 SL (01:30)
[2016-10-12 02:49] VITALS: BP 112/62
== END 2016-10-12 02:50 ==
LOC: ERH 21:25
PROVIDERS: Pediatrics
DX: N12 Tubulo-interstitial nephritis, not specified as acute or chronic (principal)
CPT/HCPCS: 74177; 81001; 87086; 96361; 96374; 96375; J0131; J0696; J1885; J2405